=== PATIENT | female | born 1960 | race Two or more races ===

== ENCOUNTER → 2025-02-17 | Outpatient (CLI) | payer OTHER, SELFPAY ==
[2025-02-17 08:32] LABS: Basophils % (Auto) 1 % (0-2.5); Eosinophils # (Auto) 0.3 Thou/mm3 (0.0-0.5); Eosinophils % (Auto) 5 % (0-10); Hematocrit 43.1 % (36.0-46.0); Hemoglobin 14.1 g/dL (12.0-16.0); Immature Granulocytes % (Auto) 0 % (0-0); Immature Granulocytes Auto 0.01 Thou/mm3 (0.00-0.00); Lymphocytes % (Auto) 40 % (10-50); Mean Corpuscular HGB Conc 32.7 g/dl (31.0-37.0); Mean Corpuscular Hemoglobin 27.3 pg (25.0-35.0); Mean Corpuscular Volume 83 fL (80-100); Monocytes # (Auto) 0.4 Thou/mm3 (0.0-0.8); Monocytes % (Auto) 9 % (0-12); Neutrophils # (Auto) 2.3 Thou/mm3 (1.8-7.7); Neutrophils % (Auto) 45 % (37-80); Nucleated Red Blood Cell % 0 /100 WBC (0); Platelet Count 241 Thou/mm3 (140-440); RDW Standard Deviation 41.8 fL (36.4-46.3); Red Blood Count 5.17 Miln/mm3 (4.00-5.20)
[2025-02-17 08:39] LABS: Glucose Estimated Average 108 mg/dL (80-131); Hemoglobin A1C 5.4 % Hgb (4.8-6.0)
[2025-02-17 08:40] LABS: Parathyroid Hormone Intact 34.4 pg/ml (18.5-88.0)
[2025-02-17 08:50] LABS: Sed Rate (ESR) 5 mm/hr (0-30)
[2025-02-17 08:53] LABS: Alanine Aminotransferase 16 U/L (10-49); Albumin, Serum 4.6 gm/dL (3.4-4.8); Albumin/Globulin Ratio 1.6 (1.2-2.2); Alkaline Phosphatase 91 U/L (46-116); Anion Gap 8 (7-16); Aspartate Amino Transferase 19 U/L (0-34); BUN/Creatinine Ratio 20 Ratio (12-20); Blood Urea Nitrogen 16 mg/dL (9-23); C-Reactive Protein < 0.5 mg/dL (0.0-0.9); Carbon Dioxide 29.2 mMol/L (20.0-31.0); Chloride 107 mMol/L (98-107); Cholesterol 236 mg/dL (132-200); Creatinine (Component) 0.8 mg/dL (0.6-1.3); Globulin 2.8 gm/dL (2.3-3.5); Glucose 98 mg/dL (74-106); HDL Cholesterol 120 mg/dL (40-60); LDL Cholesterol,Calculated 102 mg/dL (0-130); Osmolality,Calculated 288 (275-295); Sodium 144 mMol/L (136-145); Thyroid Stimulating Hormone 2.23 uIU/mL (0.55-4.78); Total Protein 7.4 gm/dL (5.7-8.2); Triglycerides 68 mg/dL (30-150); eGFR > 60 See Note
[2025-02-17 09:12] LABS: Vitamin B12 695 pg/mL (211-911)
[2025-02-17 09:43] LABS: Folate > 24.00 ng/mL (>5.38)
[2025-02-21 06:36] LABS: Vitamin D, 25-OH, D2 <4 ng/mL; Vitamin D, 25-OH, D3 27 ng/mL; Vitamin D, 25-OH, Total 27 ng/mL (30-100)
== END | disposition home or self-care (01) ==
LOC: COPL 07:10
PROVIDERS: PCP Specialist; Referring Provider Specialist; Visit Provider Specialist
DX: E83.51 Hypocalcemia (principal); N95.8 Other specified menopausal and perimenopausal disorders; R21 Rash and other nonspecific skin eruption
CPT/HCPCS: 36415; 80053; 80061; 82306; 82607; 82746; 83036; 83970; 84443; 85025; 85652; 86140

== ENCOUNTER → 2025-05-29 | Outpatient (CLI) | payer OTHER, SELFPAY ==
--- NOTE | 2025-05-29 13:04 | XR_ITS ---
Examination: Foot, left, 3 views Technique: AP, oblique, lateral views foot, 3 views Date and time of exam: May 29, 2025 1308 hours INDICATIONS: Injury to the foot today, foot pain. FINDINGS: Moderate osteopenia No acute fracture No dislocation IMPRESSION: No acute fracture Soft tissue swelling dorsum of the foot
== END | disposition home or self-care (01) ==
PROVIDERS: PCP Specialist; Referring Provider Specialist; Visit Provider Specialist
DX: S99.922A Unspecified injury of left foot, initial encounter (principal); X58.XXXA Exposure to other specified factors, initial encounter
CPT/HCPCS: 73630

== ENCOUNTER → 2025-05-31 | Outpatient (CLI) | payer OTHER, SELFPAY ==
--- NOTE | 2025-05-31 | XR_ITS ---
Examination: Foot, left, 3 views Technique: AP, oblique, lateral views foot, 3 views Date and time of exam: May 31, 2025 0744 hours INDICATIONS: Injury to the foot 3 days ago with foot pain and swelling. FINDINGS: Mild narrowing first metatarsophalangeal joint. Moderate osteopenia. No acute fracture. No dislocation IMPRESSION: No acute fracture
== END | disposition home or self-care (01) ==
LOC: CDIM 07:29
PROVIDERS: PCP Specialist; Referring Provider Specialist; Visit Provider Specialist
DX: S99.922A Unspecified injury of left foot, initial encounter (principal); X58.XXXA Exposure to other specified factors, initial encounter
CPT/HCPCS: 73630